=== PATIENT | male | born 1985 | race Caucasian/White ===

== ENCOUNTER 2022-02-19 15:41 | Inpatient (IN) | payer MEDICAID ==
[~2022-02-19] VITALS: Ht 167.6 cm; Wt 88.9 kg
[2022-02-19] MEDS ORDERED: ZOLPIDEM TARTRATE 10 MG TABLET PO PRN (17:15)
[2022-02-19] MEDS ORDERED: HALOPERIDOL 5 MG TABLET PO PRN (17:15)
[2022-02-19] MEDS ORDERED: PNEUMOCOCCAL VACCINE POLYVALENT 0.5 ML VIAL [PPSV23] IM. ONE (17:15)
[2022-02-19] MEDS ORDERED: DOCUSATE SODIUM 100 MG CAPSULE PO PRN (18:45)
[2022-02-19] MEDS ORDERED: MAGNESIUM HYDROXIDE SUSPENSION 30 ML UDCUP PO PRN (18:45)
[2022-02-19] MEDS ORDERED: MAG HYDROX/AL HYDROX/SIMETH ES 30 ML SUSPENSION UDCUP PO PRN (18:45)
[2022-02-19] MEDS ORDERED: BACITRACIN 28 GM OINTMENT TP PRN (18:45)
[2022-02-19] MEDS ORDERED: ALBUTEROL SULFATE HFA 90 MCG/PUFF 8 GM INHALER IH PRN ×2 (18:45)
[2022-02-19] MEDS ORDERED: BENZOCAINE/MENTHOL LOZENGE PO PRN (18:45)
[2022-02-19] MEDS ORDERED: LOPERAMIDE HCL 2 MG CAPSULE PO PRN (18:45)
[2022-02-19] MEDS ORDERED: PETROLATUM,WHITE 28 GM JELLY TP PRN (18:45)
[2022-02-19] MEDS ORDERED: ONDANSETRON HCL 4 MG TABLET PO PRN (18:45)
[2022-02-19] MEDS ORDERED: ACETAMINOPHEN 325 MG TABLET PO PRN (18:45)
[2022-02-19] MEDS ORDERED: IBUPROFEN 600 MG TABLET PO PRN (18:45)
[2022-02-19] MEDS ORDERED: CloNIDine HCL 0.1 MG TABLET PO PRN (18:45)
[2022-02-19 19:05] VITALS: BP 142/98
[2022-02-19] MEDS: LORazepam 2 MG TABLET PO PRN (19:25)
[2022-02-20 01:30] VITALS: BP 139/82
[2022-02-20 08:12] LABS: BASOPHILS % (AUTO) 1.2 % (0.0-2.0); EOSINOPHILS % (AUTO) 1.3 % (1.0-6.0); HEMATOCRIT 51.3 % (41-53); HEMOGLOBIN 17.3 g/dL (13.5-17.5); LYMPHOCYTES # (AUTO) 2.4 K/uL (1.0-4.8); LYMPHOCYTES % (AUTO) 33.5 % (22.0-44.0); MEAN CORPUSCULAR HEMOGLOBIN 29.2 pg (26.0-34.0); MEAN CORPUSCULAR HGB CONC 33.8 G/dL (31.0-37.0); MEAN CORPUSCULAR VOLUME 86 fL (80-100); MONOCYTES # (AUTO) 0.8 K/uL (0.1-1.0); MONOCYTES % (AUTO) 10.7 % (2.0-9.0); NEUTROPHILS # (AUTO) 3.8 K/uL (1.8-7.7); NEUTROPHILS % (AUTO) 53.3 % (40.0-70.0); PLATELET COUNT (AUTO) 201 K/uL (150-450); RED BLOOD CELL COUNT(AUTO) 5.94 MIL/uL (4.50-5.90); RED CELL DISTRIBUTION WIDTH 14.7 % (11.5-14.5)
[2022-02-20 08:22] LABS: HEMOGLOBIN A1C 5.6 % (3.8-5.6)
[2022-02-20 08:28] VITALS: BP 135/95
[2022-02-20 08:30] LABS: ALANINE AMINOTRANSFERASE 57 U/L (12-78); ALBUMIN 2.7 g/dL (3.4-5.0); ALKALINE PHOSPHATASE 104 U/L (46-116); ANION GAP 8 mmol/L (8-16); ASPARTATE AMINOTRANSFERASE 46 U/L (15-37); BILIRUBIN,TOTAL 1.6 mg/dL (0.1-1.0); CALCIUM, TOTAL 8.3 mg/dL (8.8-10.5); CARBON DIOXIDE 30 mmol/L (22-29); CHLORIDE 101 mmol/L (98-107); CHOL/HDL RATIO 2.5 (4.2-7.3); CHOLESTEROL 120 mg/dL (131-200); CREATININE 0.45 mg/dL (0.60-1.30); GLUCOSE,RANDOM 95 mg/dL (70-110); HDL CHOLESTEROL 48 mg/dL (40-60); LDL CHOL (CALC.) 61 mg/dL (0-130); POTASSIUM 4.2 mmol/L (3.5-5.1); SODIUM SERUM 139 mmol/L (136-145); THYROID STIMULATING HORMONE 4.01 uIU/mL (0.36-3.74); TOTAL PROTEIN, SERUM 6.8 g/dL (6.4-8.2); TRIGLYCERIDES 54 mg/dL (15-150); UREA NITROGEN, BLOOD 8 mg/dL (7-18)
[2022-02-20 08:38] LABS: GLOMERULAR FILTR. RATE CALC > 60 mL/min (>60)
[2022-02-20] MEDS: PARoxetine HCL 20 MG TABLET PO SCH (10:13)
[2022-02-20] MEDS: OMEPRAZOLE 20 MG CAPSULE PO SCH (10:14)
[2022-02-20 16:36] VITALS: BP 136/95
[2022-02-20] MEDS: LORazepam 2 MG TABLET PO PRN (19:16)
[2022-02-20] MEDS: DIVALPROEX SODIUM 500 MG DR TABLET PO SCH (20:47)
[2022-02-21 06:09] VITALS: BP 141/95
[2022-02-21] MEDS ORDERED: LEVOTHYROXINE SODIUM 50 MCG TABLET PO SCH (06:30)
[2022-02-21 08:23] VITALS: BP 141/90
[2022-02-21] MEDS: DIVALPROEX SODIUM 500 MG DR TABLET PO SCH (08:34)
[2022-02-21] MEDS: OMEPRAZOLE 20 MG CAPSULE PO SCH (08:34)
[2022-02-21] MEDS: PARoxetine HCL 20 MG TABLET PO SCH (08:34)
[2022-02-21] MEDS ORDERED: LURA60TA PO (11:31)
[2022-02-21] MEDS ORDERED: DIVA-112 PO (11:31)
[2022-02-21] MEDS ORDERED: LEVO50 PO ×2 (12:57→19:57)
[2022-02-21 16:27] VITALS: BP 142/91
[2022-02-21] MEDS ORDERED: LURASIDONE HCL 60 MG TABLET PO SCH (17:00)
== END 2022-02-21 15:54 | disposition home or self-care (01) | DRG 753 ==
LOC: B2S 17:13
PROVIDERS: ADMIT Psychiatry & Neurology Psychiatry; ATTEND Psychiatry & Neurology Psychiatry
DX: F31.9 Bipolar disorder, unspecified (principal); F22 Delusional disorders; E03.9 Hypothyroidism, unspecified; F41.9 Anxiety disorder, unspecified; G47.00 Insomnia, unspecified; E66.9 Obesity, unspecified; Z56.0 Unemployment, unspecified; Z72.89 Other problems related to lifestyle; Z71.41 Alcohol abuse counseling and surveillance of alcoholic; Z68.31 Body mass index [BMI] 31.0-31.9, adult
CPT/HCPCS: 80053; 80061; 83036; 84439; 84443; 85025; Q9967